=== PATIENT | female | born 1960 | race Caucasian/White ===

== ENCOUNTER 2019-03-27 08:44 | Day surgery (SDC) | payer OTHER ==
[2019-03-24 11:00] VITALS: BMI 56.5
--- NOTE | 2019-03-27 13:17 | OP ---
DATE OF PROCEDURE: 03/27/2019 PRIMARY CARE PHYSICIAN: Dr. Raudel Morgan. ACUPRESSURE THERAPIST SURGEON: None. PROCEDURES PERFORMED: 1. Esophagogastroduodenoscopy, diagnostic. 2. Colonoscopy, diagnostic. INDICATIONS: 1. Iron deficiency anemia. 2. Rectal bleeding. 3. History of Linnea-en-Y gastric bypass surgery in 2007. 4. Positive Cologuard screening test. 5. Her last colonoscopy was in 2007 or before. MEDICATIONS: See Anesthesia record. FINDINGS: After discussion of the risks, benefits, and alternatives of the procedure, informed consent was obtained and witnessed. Pre-endoscopic cardiopulmonary examination was satisfactory. Time-out was performed before sedation was achieved. Sedation was achieved with Anesthesia assistance in the endoscopy unit. A Pentax adult upper endoscope was placed into the oropharynx and passed through the cricopharyngeus under direct visualization. The esophageal mucosa appeared normal throughout with a normal-appearing Z-line. The endoscope was advanced into the gastric pouch. This is a small gastric pouch measuring about 5 mm in length. Forward and retroflexed views of the gastric pouch were obtained and it appeared normal. The gastroenteric anastomosis looks great. There is no evidence of any ulceration or erosion or even any friability in the area. The endoscope was advanced beyond the gastrojejunal anastomosis and down the efferent limb of the small intestine to the extent of the endoscope, which is 100 cm. At 100 cm, I did barely reach the distal anastomosis. This area also appeared normal. The entire small bowel examined and appeared normal. There was no evidence of any old blood, active bleeding, or bleeding lesion. The upper endoscope was completely withdrawn and the patient was repositioned. Digital rectal exam was performed, which was unremarkable. A Pentax adult colonoscope was inserted into the anus and passed forward to the cecum in the usual fashion. The cecal base was identified by the appendiceal orifice as well as the ileocecal valve. The terminal ileum was intubated and the ileal mucosa appeared normal. The colonoscope was then slowly withdrawn in a gradual and circumferential manner with careful examination of the entire colonic mucosa. The quality of the prep was good. There was diverticulosis throughout the entire colon, more on the left side than on the right. There is no evidence of any diverticulitis. The colonic mucosa appears completely normal throughout. There were no polyps or mass lesions visualized. Retroflexion in the rectum demonstrated small internal hemorrhoids. The colonoscope was completely withdrawn and the patient allowed to recover. The patient tolerated the procedure well. There were no immediate postprocedure complications. IMPRESSION: 1. Normal esophagogastroduodenoscopy, with post Linnea-en-Y gastric bypass anatomy. 2. Diverticulosis, entire colon. 3. Small internal hemorrhoids. 4. Otherwise normal colonoscopy to the terminal ileum. RECOMMENDATIONS: 1. I would advise the patient to take an oral iron supplements such as ferrous sulfate 325 mg by mouth daily. 2. Follow up with primary care provider, for further lab monitoring. 3. She can follow up in the [facility] on an as-needed basis. 4. Repeat colonoscopy for screening purposes in 10 years. Job ID: [id number]
[2019-03-27] MEDS ORDERED: Lidocaine 1% PF 5 ML VIAL ONE (16:31)
[2019-03-27] MEDS ORDERED: PROPOFOL 200 MG/20 ML VIAL ONE (16:31)
== END 2019-03-27 13:20 | disposition home or self-care (01) ==
LOC: SDC 08:44
PROVIDERS: ATTEND Internal Medicine
PROC: 0DJ08ZZ Inspection of Upper Intestinal Tract, Via Natural or Artificial Opening Endoscopic (ICD-10-PCS; principal; 2019-03-27)
PROC: 0DJD8ZZ Inspection of Lower Intestinal Tract, Via Natural or Artificial Opening Endoscopic (ICD-10-PCS; principal; 2019-03-27)
DX: D50.9 Iron deficiency anemia, unspecified (principal); K62.5 Hemorrhage of anus and rectum; K57.30 Diverticulosis of large intestine without perforation or abscess without bleeding; K64.8 Other hemorrhoids; R19.5 Other fecal abnormalities; F32.9 Major depressive disorder, single episode, unspecified; M19.90 Unspecified osteoarthritis, unspecified site; G47.30 Sleep apnea, unspecified; E66.01 Morbid (severe) obesity due to excess calories; Z68.43 Body mass index [BMI] 50.0-59.9, adult; Z79.899 Other long term (current) drug therapy; Z98.84 Bariatric surgery status
CPT/HCPCS: J2001; J2704